=== PATIENT | male | born 1960 | race Caucasian/White ===

== ENCOUNTER → 2018-01-07 14:36 | Outpatient (CLI) | payer BC, SELFPAY ==
[2018-01-07 15:08] LABS: Abs Immature Grans 0.02 k/cumm (0.0-0.09); Absolute Basophil Count 0.01 k/cumm (0.0-0.2); Absolute Eosinophil Count 0.25 k/cumm (0.0-0.7); Absolute Lymphocyte Count 3.19 k/cumm (1.2-3.4); Absolute Monocyte Count 0.81 k/cumm (0.11-0.7); Basophils % 0.1; Eosinophils % 2.6; HCT 46.4 % (40.0-50.0); HGB 15.4 g/dL (13.5-17.5); Immature Grans % 0.2; Lymphocytes % 32.6; Mean Corp. HGB Concentration 33.2 g/dL (32.0-36.0); Mean Corpuscular Hemoglobin 27.9 pg (27.0-33.0); Mean Corpuscular Volume 84.2 fL (80-95); Mean Platelet Volume 9.8 fL (8.0-11.0); Monocytes % 8.3; Neutrophils % 56.2; Platelet Count 338 x1000/uL (130-400); RBC 5.51 m/cumm (4.50-6.00); RBC Distribution Width 14.7 % (11.8-14.1); White Blood Cell Count 9.78 k/cumm (4.4-10.8)
[2018-01-07 16:01] LABS: ALT 64 U/L (12-78); AST 42 U/L (15-37); Albumin 4.1 g/dL (3.4-5.0); Alkaline Phosphatase 95 U/L (46-116); Anion Gap 7.7 mmol/L (3-11); BUN 16 mg/dL (7-18); Bilirubin, Total 0.5 mg/dL (0.2-1.0); CO2 28.3 mmol/L (21.0-32.0); CREATININE 1.12 mg/dL (0.70-1.30); Calcium 9.1 mg/dL (8.5-10.1); Chloride 101 mmol/L (98-107); Glucose 171 mg/dL (70-100); Potassium 4.4 mmol/L (3.5-5.1); Sodium 137 mmol/L (136-145); TSH (W/Ref FT4) 0.82 uIU/mL (0.358-3.74)
== END ==
PROVIDERS: PCP Nurse Practitioner Family; Visit Provider Nurse Practitioner Family
DX: E03.9 Hypothyroidism, unspecified (principal); R10.30 Lower abdominal pain, unspecified
CPT/HCPCS: 36415; 80053; 84443; 85025

== ENCOUNTER 2018-09-28 08:59 | Outpatient (CLI) | payer MEDICAID, SELFPAY ==
--- NOTE | 2018-09-28 15:40 | DI.RAD_ITS ---
SYMPTOM/DIAGNOSIS: ? GOUT, PAIN, ? FX OR BONY PATHOLOGY, WORSENING ARTHRITIS, R22.32,M79.642,M10.9 LEFT HAND: Three views were obtained. The cartilaginous joint spaces appear mildly narrowed in the DIP joints. Minimal hypertrophic spurring is present at a few sites. No soft tissue calcifications. No erosions. The carpus appears intact. CONCLUSION: Minimal degenerative changes, no specific evidence of gout.
== END 2018-09-28 09:19 ==
PROVIDERS: PCP Nurse Practitioner Family; Visit Provider Student in an Organized Health Care Education/Training Program
DX: M79.642 Pain in left hand (principal); M19.042 Primary osteoarthritis, left hand; M10.9 Gout, unspecified; R22.32 Localized swelling, mass and lump, left upper limb
CPT/HCPCS: 73130

== ENCOUNTER 2018-10-06 15:48 | Outpatient (CLI) | payer MEDICAID, SELFPAY ==
[2018-10-06 16:55] LABS: Anion Gap 9.1 mmol/L (3-11); BUN 11 mg/dL (7-18); CO2 26.9 mmol/L (21.0-32.0); CREATININE 0.97 mg/dL (0.70-1.30); Calcium 9.5 mg/dL (8.5-10.1); Chloride 99 mmol/L (98-107); Glucose 208 mg/dL (70-100); Potassium 4.4 mmol/L (3.5-5.1); Sodium 135 mmol/L (136-145)
== END 2018-10-06 16:08 ==
PROVIDERS: PCP Nurse Practitioner Family; Visit Provider Nurse Practitioner Family
DX: M10.9 Gout, unspecified (principal); E11.9 Type 2 diabetes mellitus without complications
CPT/HCPCS: 36415; 80048

== ENCOUNTER 2018-10-17 12:11 | Outpatient (CLI) | payer MEDICAID, SELFPAY ==
[2018-10-17 13:39] LABS: Uric Acid 4.4 mg/dL (3.5-7.2)
== END 2018-10-17 12:31 ==
PROVIDERS: PCP Nurse Practitioner Family; Visit Provider Nurse Practitioner Family
DX: M10.9 Gout, unspecified (principal)
CPT/HCPCS: 36415; 84550

== ENCOUNTER 2019-05-27 09:05 | Outpatient (CLI) | payer MEDICAID, SELFPAY ==
[2019-05-27 09:42] LABS: HCT 44.9 % (40.0-50.0); HGB 14.7 g/dL (13.5-17.5); Mean Corp. HGB Concentration 32.7 g/dL (32.0-36.0); Mean Corpuscular Hemoglobin 27.6 pg (27.0-33.0); Mean Corpuscular Volume 84.4 fL (80-95); Mean Platelet Volume 9.7 fL (8.0-11.0); Platelet Count 352 x1000/uL (130-400); RBC 5.32 m/cumm (4.50-6.00); RBC Distribution Width 14.4 % (11.8-14.1); White Blood Cell Count 9.33 k/cumm (4.4-10.8)
[2019-05-27 10:06] LABS: Anion Gap 8.9 mmol/L (3-11); BUN 12 mg/dL (7-18); CO2 29.1 mmol/L (21.0-32.0); CREATININE 1.13 mg/dL (0.70-1.30); Calcium 9.2 mg/dL (8.5-10.1); Chloride 102 mmol/L (98-107); Glucose 144 mg/dL (74-106); Potassium 4.4 mmol/L (3.5-5.1); Sodium 140 mmol/L (136-145); TSH (W/Ref FT4) 2.63 uIU/mL (0.36-3.74)
[2019-05-29 13:08] LABS: PSA, Screening 0.5 ng/mL (0.0-3.5)
[2019-05-31 14:23] LABS: Testosterone, Free 6.44 ng/dL (3.87-14.7); Testosterone, Total 460 ng/dL (240-950)
== END 2019-05-27 09:25 ==
PROVIDERS: PCP Nurse Practitioner Family; Visit Provider Student in an Organized Health Care Education/Training Program
DX: E03.9 Hypothyroidism, unspecified (principal); E29.1 Testicular hypofunction; R53.83 Other fatigue; E11.65 Type 2 diabetes mellitus with hyperglycemia; M19.90 Unspecified osteoarthritis, unspecified site; Z12.5 Encounter for screening for malignant neoplasm of prostate
CPT/HCPCS: 36415; 80048; 84153; 84402; 84403; 85027; 84443

== ENCOUNTER 2019-07-04 08:59 | Outpatient (CLI) | payer MEDICAID, SELFPAY ==
[2019-07-06 08:21] LABS: Testosterone, Total 499 ng/dL (240-950)
== END 2019-07-04 09:19 ==
PROVIDERS: PCP Student in an Organized Health Care Education/Training Program; Visit Provider Nurse Practitioner Gerontology
DX: E29.1 Testicular hypofunction (principal)
CPT/HCPCS: 36415; 84403

== ENCOUNTER 2019-11-20 00:31 | Outpatient (CLI) | payer OTHER, MEDICAID, SELFPAY ==
--- NOTE | 2019-11-20 11:00 | DI.RAD_ITS ---
EXAM: XR LUMBAR SPINE AP, LAT CLINICAL HISTORY: LOW BACK PAIN, DISABILITY DETERMINATION. TECHNIQUE: 2D digital imaging was performed. COMPARISON: No exams were available for comparison FINDINGS: BONES: 5 lumbar type vertebral bodies. No fracture or destructive lesion. Endplate osteophytes great est at L3-4. Facet degenerative changes greatest at L4-5 and L5-S1. DISKS: Moderate narrowing of the L3-4 disc space. ALIGNMENT: Lumbar spinal alignment is within normal limits. SOFT TISSUE: Calcification of the aorta and proximal iliac arteries. No aneurysm. IMPRESSION: Degenerative disc changes greatest at L3-4. Facet degenerative changes, greatest at L4-5. DATA REPOSITORY: RADIATION DOSE DELIVERED:
== END 2019-11-20 00:51 ==
PROVIDERS: PCP Student in an Organized Health Care Education/Training Program; Visit Provider Pediatrics Pediatric Rheumatology
DX: M54.5 Low back pain (principal); M51.36 Other intervertebral disc degeneration, lumbar region; M47.817 Spondylosis without myelopathy or radiculopathy, lumbosacral region; Z02.71 Encounter for disability determination
CPT/HCPCS: 72100

== ENCOUNTER 2019-12-22 19:14 | Outpatient (REF) | payer MEDICAID, SELFPAY ==
[2019-12-22 21:55] LABS: COMMENT (LAB VIEW ONLY) 65.14 mg/dL; Microalb ug/mg Crea 8.9 ug/mg Cr
== END 2019-12-22 19:34 ==
LOC: LBN 19:14
PROVIDERS: PCP Student in an Organized Health Care Education/Training Program; Visit Provider Student in an Organized Health Care Education/Training Program
DX: E11.65 Type 2 diabetes mellitus with hyperglycemia (principal)
CPT/HCPCS: 82043; 82570

== ENCOUNTER 2020-03-22 16:52 | Outpatient (REF) | payer MEDICAID, SELFPAY ==
[2020-03-22 20:17] LABS: ALT 83 U/L (16-63); AST 45 U/L (15-37); Albumin 4.3 g/dL (3.4-5.0); Alkaline Phosphatase 102 U/L (46-116); Anion Gap 6.4 mmol/L (3-11); BUN 15 mg/dL (7-18); Bilirubin, Total 0.5 mg/dL (0.2-1.0); CO2 27.6 mmol/L (21.0-32.0); CREATININE 1.06 mg/dL (0.70-1.30); Calcium 9.5 mg/dL (8.5-10.1); Calculated LDL 51 mg/dL (<100); Chloride 105 mmol/L (98-107); Cholesterol 141 mg/dL (<200); Glucose 80 mg/dL (74-106); HDL Cholesterol 58 mg/dL (40-60); Sodium 139 mmol/L (136-145); Total Protein 8.1 g/dL (6.4-8.2); Triglyceride 161 mg/dL (<150)
== END 2020-03-22 17:12 ==
LOC: LBO 16:52
PROVIDERS: PCP Student in an Organized Health Care Education/Training Program; Visit Provider Student in an Organized Health Care Education/Training Program
DX: Z13.220 Encounter for screening for lipoid disorders (principal); E11.65 Type 2 diabetes mellitus with hyperglycemia; Z79.899 Other long term (current) drug therapy
CPT/HCPCS: 80053; 80061

== ENCOUNTER 2020-07-26 02:58 | Outpatient (CLI) | payer MEDICAID, SELFPAY ==
[2020-07-27 18:04] LABS: COVID-19 RT-PCR UVMMC Result Negative (Negative)
== END 2020-07-26 02:59 | disposition home or self-care (01) ==
LOC: LBO 02:58
PROVIDERS: PCP Student in an Organized Health Care Education/Training Program; Visit Provider Student in an Organized Health Care Education/Training Program
DX: Z20.822 Contact with and (suspected) exposure to COVID-19 (principal)
CPT/HCPCS: U0003

== ENCOUNTER 2020-08-05 03:49 | Outpatient (CLI) | payer MEDICAID, SELFPAY ==
[2020-08-05 14:38] LABS: ALT 89 U/L (16-63); AST 48 U/L (15-37); Albumin 4.1 g/dL (3.4-5.0); Alkaline Phosphatase 78 U/L (46-116); Anion Gap 10.2 mmol/L (3-11); BUN 14 mg/dL (7-18); Bilirubin, Total 0.4 mg/dL (0.2-1.0); CO2 27.8 mmol/L (21.0-32.0); CREATININE 1.3 mg/dL (0.70-1.30); Calculated LDL 82 mg/dL (<100); Chloride 103 mmol/L (98-107); Cholesterol 175 mg/dL (<200); Glucose 114 mg/dL (74-106); HDL Cholesterol 48 mg/dL (40-60); Potassium 4.2 mmol/L (3.5-5.1); Sodium 141 mmol/L (136-145); TSH (W/Ref FT4) 1.14 uIU/mL (0.36-3.74); Triglyceride 229 mg/dL (<150)
[2020-08-05 14:40] LABS: Calcium 9.2 mg/dL (8.5-10.1)
[2020-08-05 14:54] LABS: Total Protein 7.5 g/dL (6.4-8.2)
== END 2020-08-05 03:50 | disposition home or self-care (01) ==
LOC: LBO 03:49
PROVIDERS: PCP Student in an Organized Health Care Education/Training Program; Visit Provider Student in an Organized Health Care Education/Training Program
DX: E11.65 Type 2 diabetes mellitus with hyperglycemia (principal); E03.9 Hypothyroidism, unspecified; E78.5 Hyperlipidemia, unspecified; M79.89 Other specified soft tissue disorders
CPT/HCPCS: 36415; 80053; 80061; 84443

== ENCOUNTER 2020-08-08 00:54 | Outpatient (CLI) | payer MEDICAID, SELFPAY ==
--- NOTE | 2020-08-08 13:00 | ETT_ITS ---
APPROVED REPORT Exam: Exercise Treadmill Patient Location: Out-Patient Room/Bed: Ordering Provider:MOISÉS SWANCHEMAROSA, Contact Number: [phone] BMI: 38.09 Baseline Rhythm: Sinus Rhythm Indications: ATYPICAL CHEST PAIN Medical History Medical History: Chronic pain syndrome, Diabetic peripheral neuropathy, Depression, Erectile dysfunct ion, HLD, JULI, DM II, Tobacco use. Cardiac Medications: Aspirin, Atorvastatin, Empagliflozin, Glipizide, Insulin degludec, Insulin NPH, Liraglutide, Metformin. Allergies: No known drug allergies Cardiac Risk Factors: Hyperlipidemia, , DM, FHX of CAD, Smoking (former) Previous Cardiac Procedures: None. Pretest Chest Pain Characteristics: None. Exercise History: Sedentary Physical Disabilities: None. Lung Sounds: Clear to auscultation Heart Sounds: Regular Stress Test Details Test: Exercise stress testing was performed using a Ty protocol. Rest Stress HR Resting HR Supine: 81 bpm Max Heart Rate (APMHR): 162 bpm Resting HR Standin bpm Target HR (85% APMHR): 137 bpm Max HR Achieved: 146 bpm % of APMHR: 90 Recovery HR: 96 bpm HR response to stress: Normal HR response to stress BP Resting BP Supine: 124/82 mmHg Resting BP Standin/68 mmHg Max BP: 148/68 mmHg Recovery BP: 128/68 mmHg BP response to stress: Normal blood pressure response to stress. Comment: cuff changed to a larger size between supine and standing readings. ECG Resting ECG: Sinus Rhythm Ectopy: None. Stress ECG: Sinus Tachycardia ST Change: No significant ST segment changes noted Arrhythmia: None Recovery ECG: Sinus Rhythm Recovery ST Change: No significant ST segment changes noted Recovery Arrhythmia: None Clinical Reason for Termination: Fatigue Stress Symptoms: General Fatigue Exercise duration: 9 min01 sec Highest Stage Reached: Stage 3: 3.4 mph at 14% grade. Exercise capacity: 10.16 METs Og Treadmill Score: 8.2 Rate Pressure Product: [id number] Stress ECG Conclusion 1. The patient exercised for 9 minutes (10 METS). Exercise was stopped due to fatigue. 2. Patient augmented heart rate and blood pressure appropriately. 3. There was no evidence of ischemia on the ECG portion of the exam. Og Treadmill Score is 8.2 which is Low risk. Stress Test Summary STAGE Time (mins) Speed (mph) Grade (%) HR BP SYMPTOMS METS Supine 81 124/82 Standing 86 106/68 1 3 1.7 10 110 122/68 4.6 2 6 2.5 12 124 144/82 7 3 9 3.4 14 145 10.2 1 min recovery 130 140/60 3 min recovery 108 148/68 6 min recovery 96 128/68
== END 2020-08-08 01:14 ==
PROVIDERS: PCP Student in an Organized Health Care Education/Training Program; Visit Provider Student in an Organized Health Care Education/Training Program
DX: R07.89 Other chest pain (principal); E78.5 Hyperlipidemia, unspecified; E11.9 Type 2 diabetes mellitus without complications; Z82.49 Family history of ischemic heart disease and other diseases of the circulatory system; Z87.891 Personal history of nicotine dependence
CPT/HCPCS: 93017

== ENCOUNTER 2021-08-28 02:11 | Outpatient (CLI) | payer MEDICAID, SELFPAY ==
[2021-08-28 10:40] LABS: ALT 78 U/L (16-63); AST 43 U/L (15-37); Albumin 4.1 g/dL (3.4-5.0); Alkaline Phosphatase 74 U/L (46-116); Anion Gap 10.5 mmol/L (3-11); BUN 16 mg/dL (7-18); Bilirubin, Total 0.5 mg/dL (0.2-1.0); CO2 29.5 mmol/L (21.0-32.0); CREATININE 1.1 mg/dL (0.70-1.30); Calcium 9.1 mg/dL (8.5-10.1); Calculated LDL 186 mg/dL (<100); Chloride 99 mmol/L (98-107); Cholesterol 294 mg/dL (<200); Glucose 122 mg/dL (74-106); HDL Cholesterol 47 mg/dL (40-60); Potassium 4.5 mmol/L (3.5-5.1); Sodium 139 mmol/L (136-145); TSH (W/Ref FT4) 1.58 uIU/mL (0.36-3.74); Total Protein 7.8 g/dL (6.4-8.2); Triglyceride 309 mg/dL (<150)
== END 2021-08-28 02:12 | disposition home or self-care (01) ==
LOC: LBO 02:12
PROVIDERS: PCP Student in an Organized Health Care Education/Training Program; Referring Provider Student in an Organized Health Care Education/Training Program
DX: E03.9 Hypothyroidism, unspecified (principal); E11.9 Type 2 diabetes mellitus without complications; E78.5 Hyperlipidemia, unspecified; E66.8 Other obesity
CPT/HCPCS: 36415; 80053; 80061; 84443

== ENCOUNTER 2021-11-06 03:21 | Outpatient (CLI) | payer MEDICAID, SELFPAY ==
[2021-11-06 08:42] LABS: HGB 16.2 g/dL (13.5-17.5)
[2021-11-06 10:09] LABS: Iron 77 ug/dL (65-175); Total Iron Binding Capacity 386 ug/dL (250-450); Transferrin Sat 20 % (20-55)
[2021-11-06 10:17] LABS: Ferritin 119 ng/mL (26-388)
== END 2021-11-06 03:22 | disposition home or self-care (01) ==
LOC: LBO 03:22
PROVIDERS: PCP Student in an Organized Health Care Education/Training Program; Visit Provider Student in an Organized Health Care Education/Training Program
DX: E11.9 Type 2 diabetes mellitus without complications; G25.81 Restless legs syndrome
CPT/HCPCS: 36415; 82728; 83540; 83550; 85018

== ENCOUNTER 2022-01-06 02:38 | Outpatient (RCR) | payer MEDICAID, SELFPAY ==
[2021-12-23 10:45] VITALS: BP 125/80
[2021-12-23] MEDS: Normal Saline Flush 10 ML SYR IVP (10:54)
[2021-12-23] MEDS: IRON SUCROSE COMPLEX 200 MG in Normal Saline 100 ML 440 MG IVPB (10:58)
[2021-12-26 10:55] VITALS: BP 120/77
[2021-12-26] MEDS: Normal Saline Flush 10 ML SYR IVP (10:55)
[2021-12-26] MEDS: IRON SUCROSE COMPLEX 200 MG in Normal Saline 100 ML 440 MG IVPB (11:00)
[2021-12-30 13:43] VITALS: BP 106/73
[2021-12-30] MEDS: IRON SUCROSE COMPLEX 200 MG in Normal Saline 100 ML 440 MG IVPB (13:44)
[2021-12-30] MEDS: Normal Saline Flush 10 ML SYR IVP (13:44)
[2022-01-02] MEDS: IRON SUCROSE COMPLEX 200 MG in Normal Saline 100 ML 440 MG IVPB (10:51)
[2022-01-02] MEDS: Normal Saline Flush 10 ML SYR IVP (10:51)
[2022-01-06] MEDS: Normal Saline Flush 10 ML SYR IVP (13:45)
[2022-01-06] MEDS: IRON SUCROSE COMPLEX 200 MG in Normal Saline 100 ML 440 MG IVPB (13:45)
== END 2022-01-14 23:59 | disposition home or self-care (01) ==
LOC: INF 02:38
PROVIDERS: PCP Student in an Organized Health Care Education/Training Program; Visit Provider Student in an Organized Health Care Education/Training Program
DX: E61.1 Iron deficiency (principal); G25.81 Restless legs syndrome
CPT/HCPCS: 96365; J1756

== ENCOUNTER 2022-01-30 01:48 | Outpatient (CLI) | payer MEDICAID, SELFPAY ==
[2022-01-30 15:45] LABS: HCT 46.9 % (40.0-50.0); MCH 29.3 pg (27.0-33.0); MCHC 34.1 % (32.0-36.0); MCV 86 fL (80-95); MPV 9.3 fL (8.0-11.0); Platelet Count 301 10^3/uL (130-400); RBC 5.47 10^6/uL (4.36-5.78); RDW 14.2 % (11.8-14.1); RDW-SD 45.4 fL; WBC 8.08 10^3/uL (4.4-10.8)
[2022-01-30 16:42] LABS: Iron 76 ug/dL (65-175); Total Iron Binding Capacity 316 ug/dL (250-450); Transferrin Sat 24 % (20-55)
[2022-01-30 16:54] LABS: Ferritin 372 ng/mL (26-388)
[2022-02-02 05:40] LABS: Vitamin D 25 Total 25.8 ng/mL (30-100)
== END 2022-01-30 01:49 | disposition home or self-care (01) ==
LOC: LBO 01:48
PROVIDERS: PCP Student in an Organized Health Care Education/Training Program; Visit Provider Student in an Organized Health Care Education/Training Program
DX: E61.1 Iron deficiency (principal); M43.6 Torticollis; M54.2 Cervicalgia; M89.8X8 Other specified disorders of bone, other site
CPT/HCPCS: 36415; 82306; 85027; 82728; 83540; 83550

== ENCOUNTER 2022-02-27 01:43 | Outpatient (CLI) | payer MEDICAID, SELFPAY ==
[2022-02-27 10:43] LABS: HGB 15.1 g/dL (13.5-17.5)
[2022-02-27 11:52] LABS: Iron 95 ug/dL (65-175); Total Iron Binding Capacity 325 ug/dL (250-450); Transferrin Sat 29 % (20-55)
[2022-02-27 13:22] LABS: Ferritin 319 ng/mL (26-388)
== END 2022-02-27 01:44 | disposition home or self-care (01) ==
LOC: LBO 01:43
PROVIDERS: PCP Student in an Organized Health Care Education/Training Program; Visit Provider Student in an Organized Health Care Education/Training Program
DX: E61.1 Iron deficiency (principal)
CPT/HCPCS: 36415; 82728; 83540; 83550; 85018

== ENCOUNTER 2022-06-09 03:17 | Outpatient (CLI) | payer MEDICAID, SELFPAY ==
[2022-06-09 13:58] LABS: Vitamin D 25 Total 37.5 ng/mL (30-100)
[2022-06-09 15:29] LABS: Iron 71 ug/dL (65-175)
== END 2022-06-09 03:18 | disposition home or self-care (01) ==
LOC: LBO 03:17
PROVIDERS: PCP Student in an Organized Health Care Education/Training Program; Visit Provider Student in an Organized Health Care Education/Training Program
DX: E61.1 Iron deficiency (principal); E78.5 Hyperlipidemia, unspecified; E11.40 Type 2 diabetes mellitus with diabetic neuropathy, unspecified; Z79.4 Long term (current) use of insulin; E46 Unspecified protein-calorie malnutrition; K25.9 Gastric ulcer, unspecified as acute or chronic, without hemorrhage or perforation; R20.2 Paresthesia of skin
CPT/HCPCS: 36415; 82306; 83540

== ENCOUNTER 2022-09-10 01:14 | Outpatient (CLI) | payer MEDICARE, SELFPAY ==
--- NOTE | 2022-09-10 07:13 | DI.US_ITS ---
Exam(s) US ABDOMEN LIMITED EXAM: US ABDOMEN LIMITED CLINICAL HISTORY: N/V, RUQ pain,biliary colic,k80.50,r10.11 TECHNIQUE: Ultrasound abdomen performed using standard protocol. COMPARISON: CT ABD PELVIS WITH CONTRAST from 10/04/2017 FINDINGS: PANCREAS: Normal where visualized. LIVER: There is increased echogenicity of the liver consistent with fatty infiltration. Hepatopedal flow in the Portal Vein. The liver measures in 16.3 cm length. GALLBLADDER: No evidence of cholelithiasis. No evidence of wall thickening. No pericholecystic fluid identified. BILIARY SYSTEM: Common bile duct measures < 7 mm. No intrahepatic biliary ductal dilation. QUINN'S SIGN: Negative. RIGHT KIDNEY: Kidney is normal in size. No evidence of renal calculi. No evidence of hydronephrosis. No renal mass or cyst identified. ASCITES: None seen. IMPRESSION: Diffuse fatty infiltration of the liver. DATA REPOSITORY:
== END 2022-09-10 01:34 ==
LOC: DI 01:14
PROVIDERS: PCP Student in an Organized Health Care Education/Training Program; Visit Provider Family Medicine
DX: K80.50 Calculus of bile duct without cholangitis or cholecystitis without obstruction (principal)
CPT/HCPCS: 76705

== ENCOUNTER 2022-09-25 10:10 | Outpatient (CLI) | payer MEDICARE, SELFPAY ==
[2022-09-25 10:11] LABS: ALT 71 U/L (16-63); AST 46 U/L (15-37); Albumin 4.2 g/dL (3.4-5.0); Alkaline Phosphatase 71 U/L (46-116); Bilirubin, Direct 0.1 mg/dL (0.0-0.2); Bilirubin, Total 0.5 mg/dL (0.2-1.0); TSH (W/Ref FT4) 1.14 uIU/mL (0.36-3.74); Total Protein 8.1 g/dL (6.4-8.2)
[2022-09-26 14:55] LABS: Lab Add On Test DONE
[2022-09-26 15:02] LABS: Lipase 147 U/L (16-77)
== END 2022-09-25 10:11 | disposition home or self-care (01) ==
LOC: LBO 10:10
PROVIDERS: PCP Student in an Organized Health Care Education/Training Program; Visit Provider Student in an Organized Health Care Education/Training Program
DX: E78.5 Hyperlipidemia, unspecified (principal); E03.9 Hypothyroidism, unspecified; K76.0 Fatty (change of) liver, not elsewhere classified; R74.8 Abnormal levels of other serum enzymes; R59.0 Localized enlarged lymph nodes
CPT/HCPCS: 36415; 80076; 83690; 84443

== ENCOUNTER 2022-11-04 02:51 | Outpatient (CLI) | payer MEDICARE, SELFPAY ==
[2022-11-04 10:15] LABS: HGB 14.6 g/dL (13.5-17.5)
[2022-11-04 10:30] LABS: Hemoglobin A1C 6.6 % (<5.7)
[2022-11-04 11:04] LABS: ALT 69 U/L (16-63); AST 46 U/L (15-37); Alkaline Phosphatase 70 U/L (46-116); Bilirubin, Total 0.8 mg/dL (0.2-1.0); Calculated LDL 53 mg/dL (<100); Cholesterol 122 mg/dL (<200); Ferritin 231 ng/mL (26-388); HDL Cholesterol 48 mg/dL (40-60); Total Protein 7.8 g/dL (6.4-8.2); Triglyceride 105 mg/dL (<150)
[2022-11-04 11:13] LABS: Bilirubin, Direct 0.2 mg/dL (0.0-0.2); Lipase 92 U/L (16-77)
== END 2022-11-04 02:52 | disposition home or self-care (01) ==
LOC: LBO 02:51
PROVIDERS: PCP Student in an Organized Health Care Education/Training Program; Visit Provider Student in an Organized Health Care Education/Training Program
DX: R73.09 Other abnormal glucose (principal); K76.0 Fatty (change of) liver, not elsewhere classified; E03.9 Hypothyroidism, unspecified; E78.5 Hyperlipidemia, unspecified; R74.8 Abnormal levels of other serum enzymes
CPT/HCPCS: 36415; 80061; 80076; 83690; 82728; 83036; 85018

== ENCOUNTER 2022-12-01 01:03 | Outpatient (CLI) | payer MEDICARE, SELFPAY ==
--- NOTE | 2022-12-01 07:00 | DI.US_ITS ---
Exam(s) US HERNIA EXAM: US HERNIA CLINICAL HISTORY: evaluate sub-sternal anomaly for hernia,k43.9. TECHNIQUE: Ultrasound was performed using standard protocol. COMPARISON: CT ABD PELVIS WITH CONTRAST from 10/04/2017 FINDINGS: Sonographic assessment utilizing grayscale and color Doppler imaging was performed and targeted to th e area of clinical concern. Examination was limited by the patient's size. A ventral hernia cannot be excluded on this examinati on. In this patient, a CT scan of the abdomen would be most beneficial to evaluate for an abdominal wall hernia. CT scan of the abdomen and pelvis from 10/04/2017 showed no evidence of a supraumbilical hernia. IMPRESSION: 1. Suboptimal examination due to patient body habitus. A ventral hernia cannot be excluded on this e xamination. 2. A CT scan of the abdomen should be considered in this patient for further evaluation. DATA REPOSITORY:
== END 2022-12-01 01:23 ==
LOC: DI 01:03
PROVIDERS: PCP Student in an Organized Health Care Education/Training Program; Visit Provider Student in an Organized Health Care Education/Training Program
DX: K43.9 Ventral hernia without obstruction or gangrene (principal)
CPT/HCPCS: 76857

== ENCOUNTER → 2023-09-08 02:45 | Outpatient (CLI) | payer MEDICARE, SELFPAY ==
--- NOTE | 2023-09-08 10:52 | DI.RAD_ITS ---
Exam(s) XR ARTHRITIS SERIES EXAM: XR ARTHRITIS SERIES CLINICAL HISTORY: BILAT HAND PAIN,M79.641,M79.642. TECHNIQUE: 2D digital imaging was performed. Two images were obtained. COMPARISON: No exams were available for comparison FINDINGS: BONES: No acute fracture is present. No bony destructive lesion is seen. JOINTS: No dislocation present. There are findings of mild osteoarthritis in the hands characterized by joint space narrowing and osteophytes predominantly involving the interphalangeal joints of the h and, but also the right 1st CMC joint. The metacarpophalangeal joints are well maintained. There ar e no erosions or soft tissue calcifications present. SOFT TISSUE: Normal. IMPRESSION: Mild osteoarthritis of the hands. DATA REPOSITORY: RADIATION DOSE DELIVERED:
--- NOTE | 2023-09-08 10:55 | DI.RAD_ITS ---
Exam(s) XR ANKLE RT COMPLETE EXAM: XR ANKLE RT COMPLETE CLINICAL HISTORY: CHRONIC BILAT ANKLE PAIN,M25.571,M25.572. TECHNIQUE: 2D digital imaging was performed of the right ankle. Three images were obtained. AP, la teral and oblique views were obtained. COMPARISON: No exams were available for comparison FINDINGS: BONES: No acute fracture is present. No bony destructive lesion is seen. There is an enthesophyte at the posterior calcaneus. JOINTS: The ankle mortise is normally aligned. SOFT TISSUE: Normal. IMPRESSION: No acute fracture or dislocation. DATA REPOSITORY: RADIATION DOSE DELIVERED:
--- NOTE | 2023-09-08 10:55 | DI.RAD_ITS ---
Exam(s) XR ANKLE LT COMPLETE EXAM: XR ANKLE LT COMPLETE CLINICAL HISTORY: CHRONIC BILAT ANKLE PAIN,M25.571,M25.572 TECHNIQUE: 2D digital imaging was performed of the left ankle. Three images were obtained. AP, lat eral and oblique views were obtained. COMPARISON: No exams were available for comparison FINDINGS: BONES: No acute fracture is present. No bony destructive lesion is seen. There is an enthesophyte at the posterior calcaneus. JOINTS:The ankle mortise is normally aligned. The joint spaces are well maintained. SOFT TISSUE: Dystrophic calcifications are seen on the plantar surface of the foot likely involving t he plantar fascia. IMPRESSION: No acute abnormality. DATA REPOSITORY: RADIATION DOSE DELIVERED:
== END ==
PROVIDERS: PCP Student in an Organized Health Care Education/Training Program; Visit Provider Internal Medicine Rheumatology
DX: M25.571 Pain in right ankle and joints of right foot (principal); M25.572 Pain in left ankle and joints of left foot
CPT/HCPCS: 73120; 73610

== ENCOUNTER 2023-09-08 10:50 | Outpatient (CLI) | payer MEDICARE, SELFPAY ==
[2023-09-08 11:38] LABS: Anion Gap 10.3 mmol/L (3-11); BUN 18 mg/dL (7-18); CO2 28.7 mmol/L (21.0-32.0); Calcium 9.5 mg/dL (8.5-10.1); Chloride 99 mmol/L (98-107); Estimated GFR 85.63 (mL/min/1.73m2); Glucose 228 mg/dL (74-106); Potassium 3.8 mmol/L (3.5-5.1); Sodium 138 mmol/L (136-145)
== END 2023-09-08 10:51 | disposition home or self-care (01) ==
LOC: LBO 10:50
PROVIDERS: PCP Student in an Organized Health Care Education/Training Program; Visit Provider Student in an Organized Health Care Education/Training Program
DX: R79.89 Other specified abnormal findings of blood chemistry (principal); K76.0 Fatty (change of) liver, not elsewhere classified; R74.8 Abnormal levels of other serum enzymes
CPT/HCPCS: 36415; 80048

== ENCOUNTER 2023-10-05 20:12 | Outpatient (CLI) | payer MEDICARE, SELFPAY ==
[2023-10-05 16:50] LABS: Hemoglobin A1C 7.4 % (<5.7)
[2023-10-05 17:31] LABS: ALT 84 U/L (16-63); AST 49 U/L (15-37); Albumin 4.2 g/dL (3.4-5.0); Alkaline Phosphatase 80 U/L (46-116); Anion Gap 11.7 mmol/L (3-11); BUN 13 mg/dL (7-18); Bilirubin, Total 0.4 mg/dL (0.2-1.0); CO2 28.3 mmol/L (21.0-32.0); Calcium 9.5 mg/dL (8.5-10.1); Chloride 102 mmol/L (98-107); Glucose 124 mg/dL (74-106); Potassium 4.2 mmol/L (3.5-5.1); Sodium 142 mmol/L (136-145); Total Protein 7.6 g/dL (6.4-8.2)
== END 2023-10-05 20:13 | disposition home or self-care (01) ==
LOC: LBO 20:14
PROVIDERS: PCP Student in an Organized Health Care Education/Training Program; Visit Provider Student in an Organized Health Care Education/Training Program
DX: E78.5 Hyperlipidemia, unspecified (principal); K76.0 Fatty (change of) liver, not elsewhere classified; R74.8 Abnormal levels of other serum enzymes; Z79.4 Long term (current) use of insulin; E11.40 Type 2 diabetes mellitus with diabetic neuropathy, unspecified
CPT/HCPCS: 36415; 80053; 83036

== ENCOUNTER → 2023-10-15 00:09 | Outpatient (CLI) | payer MEDICARE, SELFPAY ==
--- NOTE | 2023-10-15 06:15 | DI.US_ITS ---
Exam(s) US ABDOMEN LIMITED EXAM: US ABDOMEN LIMITED CLINICAL HISTORY: Evaluate steatosis, fatty liver, K76.0 TECHNIQUE: Ultrasound abdomen performed using standard protocol. COMPARISON: US US ABDOMEN LIMITED from 09/10/2022 FINDINGS: PANCREAS: Normal where visualized. LIVER: There is diffuse increased echogenicity of the liver. Hepatopetal flow in the Portal Vein. Th e liver measures in 17.5 cm length. No evidence of a hepatic mass. GALLBLADDER: No evidence of cholelithiasis. No evidence of wall thickening. No pericholecystic fluid identified. BILIARY SYSTEM: Common bile duct measures < 7 mm. No intrahepatic biliary ductal dilation. QUINN'S SIGN: Negative. RIGHT KIDNEY: Kidney is normal in size. No evidence of renal calculi. No evidence of hydronephrosis. No renal mass or cyst identified. ASCITES: None seen. IMPRESSION: Hepatic steatosis. DATA REPOSITORY:
== END ==
PROVIDERS: PCP Student in an Organized Health Care Education/Training Program; Visit Provider Student in an Organized Health Care Education/Training Program
DX: K76.0 Fatty (change of) liver, not elsewhere classified (principal)
CPT/HCPCS: 76705

== ENCOUNTER → 2023-11-22 14:14 | Outpatient (BNVA) | payer MEDICARE, SELFPAY | PROVIDERS: PCP Student in an Organized Health Care Education/Training Program; Referring Provider Student in an Organized Health Care Education/Training Program; Visit Provider Podiatrist | DX: M25.571 Pain in right ankle and joints of right foot (principal); M25.572 Pain in left ankle and joints of left foot; Z79.4 Long term (current) use of insulin; E11.42 Type 2 diabetes mellitus with diabetic polyneuropathy | CPT/HCPCS: J0702; 20605; 99214; J1100 ==

== ENCOUNTER → 2023-11-24 00:20 | Outpatient (CLI) | payer MEDICARE, SELFPAY ==
--- NOTE | 2023-11-24 13:04 | DI.RAD_ITS ---
Exam(s) XR ANKLE RT COMPLETE EXAM: XR ANKLE RT COMPLETE CLINICAL HISTORY: Pain in right ankle,M125.571. TECHNIQUE: 2D digital imaging was performed. Three views. COMPARISON: CR XR ANKLE RT COMPLETE from 09/08/2023 CR XR ANKLE LT COMPLETE from 11/24/2023 FINDINGS: BONES: No acute fracture is present. No bony destructive lesion is seen. Heel spurs. JOINTS: The ankle mortise is normally aligned. SOFT TISSUE: Normal. IMPRESSION: heel spurs. No acute abnormality. DATA REPOSITORY: RADIATION DOSE DELIVERED:
--- NOTE | 2023-11-24 13:04 | DI.RAD_ITS ---
Exam(s) XR ANKLE LT COMPLETE EXAM: XR ANKLE LT COMPLETE CLINICAL HISTORY: Comparison, PAIN LT ANKLE, M25.572 TECHNIQUE: 2D digital imaging was performed. Three views. COMPARISON: CR XR ANKLE LT COMPLETE from 09/08/2023 FINDINGS: BONES: No acute fracture is present. No bony destructive lesion is seen. Heel spurs. Small dorsal talar beak. JOINTS:The ankle mortise is normally aligned. SOFT TISSUE: Calcification in the plantar fascia IMPRESSION: Heel spurs. Plantar fascial calcification. Stable appearance. DATA REPOSITORY: RADIATION DOSE DELIVERED:
== END ==
PROVIDERS: PCP Student in an Organized Health Care Education/Training Program; Visit Provider Podiatrist
DX: M25.571 Pain in right ankle and joints of right foot (principal); M25.572 Pain in left ankle and joints of left foot; M77.32 Calcaneal spur, left foot; M77.31 Calcaneal spur, right foot
CPT/HCPCS: 73610

== ENCOUNTER → 2023-12-13 14:18 | Outpatient (BNVA) | payer MEDICARE, SELFPAY | PROVIDERS: PCP Student in an Organized Health Care Education/Training Program; Referring Provider Student in an Organized Health Care Education/Training Program; Visit Provider Podiatrist | DX: E11.42 Type 2 diabetes mellitus with diabetic polyneuropathy (principal); Z79.4 Long term (current) use of insulin; M25.571 Pain in right ankle and joints of right foot; M25.572 Pain in left ankle and joints of left foot | CPT/HCPCS: 20605; J0702; J1100 ==

== ENCOUNTER 2024-08-01 16:19 | Outpatient (CLI) | payer MEDICARE, SELFPAY | END 2024-08-01 16:20 | disposition home or self-care (01) | LOC: LBO 16:20 | PROVIDERS: PCP Family Medicine; Visit Provider Student in an Organized Health Care Education/Training Program | DX: E03.9 Hypothyroidism, unspecified (principal); E11.40 Type 2 diabetes mellitus with diabetic neuropathy, unspecified; G47.00 Insomnia, unspecified; Z79.4 Long term (current) use of insulin; G56.02 Carpal tunnel syndrome, left upper limb; R20.0 Anesthesia of skin | CPT/HCPCS: 36415; 84443 ==